=== PATIENT | male | born 1980 | race Two or more races ===

== ENCOUNTER 2018-03-29 15:16 | Emergency (ER) | payer OTHER ==
[~2018-03-29] VITALS: Ht 165.1 cm; Wt 72.6 kg
[~2018-03-29 15:16] MED LIST: GILTUSS TR TAB1 EACH PO; KETO10TA2 PO; ORPH100T PO; TUSSI PRES-B L120 M1 PO; TUSSIONEX PENNKI5 ML PO; ZITHROMAX TRI-500 MG PO
== END 2018-03-29 17:11 | disposition home or self-care (01) ==
LOC: ER 15:16
DX: B34.9 Viral infection, unspecified (principal)

== ENCOUNTER 2022-09-06 08:30 | Emergency (ER) | payer OTHER ==
[~2022-09-06] VITALS: Ht 165.1 cm; Wt 72.6 kg
== END 2022-09-06 12:07 | disposition home or self-care (01) ==
LOC: ER 08:30
DX: A09 Infectious gastroenteritis and colitis, unspecified (principal)

== ENCOUNTER 2022-11-22 23:23 | Emergency (ER) | payer OTHER ==
[~2022-11-22] VITALS: Ht 165.1 cm; Wt 74.8 kg
== END 2022-11-23 02:29 | disposition home or self-care (01) ==
LOC: ER 23:23
DX: J06.9 Acute upper respiratory infection, unspecified (principal); Z20.822 Contact with and (suspected) exposure to COVID-19

== ENCOUNTER 2024-10-12 06:51 | Emergency (ER) | payer OTHER ==
[~2024-10-12] VITALS: Ht 165.1 cm; Wt 75.7 kg
[2024-10-12] MEDS ORDERED: KETOROLAC TROMETHAMINE 60 MG VIAL IM STA (08:28)
[2024-10-12] MEDS ORDERED: KETOROLAC TROMETHAMINE 60 MG VIAL IM ONE (08:36)
[2024-10-12 09:25] LABS: HEMATOCRIT 44.8 % (39.0-48.0); HEMOGLOBIN 15.7 g/dL (13-16.00); MEAN CELL VOLUME 92.5 fL (80.0-100.00); MEAN CORPUSCULAR HEMOGLOBIN 32.4 pg (27.00-32.0); PLATELET COUNT 173 K/uL (150-450); RED BLOOD COUNT 4.85 M/uL (4.00-6.00); RED CELL DISTRIBUTION WIDTH 12.3 % (11.5-14.5)
== END 2024-10-12 10:20 | disposition home or self-care (01) ==
LOC: ER 06:53
PROVIDERS: General Practice
DX: B34.9 Viral infection, unspecified (principal); Z20.822 Contact with and (suspected) exposure to COVID-19

== ENCOUNTER 2024-10-20 08:55 | Emergency (ER) | payer OTHER ==
[~2024-10-20] VITALS: Ht 165.1 cm; Wt 72.6 kg
[2024-10-20] MEDS ORDERED: ORPHENADRINE CITRATE 30 MG/ML AMPUL ONE (11:11)
[2024-10-20] MEDS ORDERED: KETOROLAC TROMETHAMINE 30 MG VIAL ONE (11:11)
[2024-10-20] MEDS ORDERED: ORPHENADRINE CITRATE 30 MG/ML AMPUL IM ONE (11:15)
[2024-10-20] MEDS ORDERED: KETOROLAC TROMETHAMINE 60 MG VIAL IM ONE (11:15)
== END 2024-10-20 13:37 | disposition home or self-care (01) ==
LOC: ER 08:57
DX: R07.1 Chest pain on breathing (principal)
CPT/HCPCS: 96372; 99282; J1885; J2360